=== PATIENT | male | born 1970 | race Caucasian/White ===

== ENCOUNTER 2020-12-08 22:16 | Emergency (ER) | payer BC ==
[~2020-12-08] VITALS: Ht 177.8 cm; Wt 97.7 kg
[2020-12-08] MEDS ORDERED: ketorolac trometh. 30mg/ml inj. IV ONE (22:35)
[2020-12-08] MEDS ORDERED: normal saline 1000ML IV soln IVB ONE (22:35)
[2020-12-08 22:39] LABS: BASOPHILS # (AUTO) 0.1 X10'3 (0-0.2); BASOPHILS % (AUTO) 0.8 % (0-1); EOSINOPHILS # (AUTO) 0.1 X10'3 (0-0.9); EOSINOPHILS % (AUTO) 1.2 % (0-6); HEMATOCRIT 46.5 % (42.0-52.0); HEMOGLOBIN 16.3 g/dl (14.0-17.9); LYMPHOCYTES # (AUTO) 3.6 X10'3 (1.1-4.8); LYMPHOCYTES % (AUTO) 39.9 % (21-51); MEAN CORPUSCULAR VOLUME 91.5 FL (78-98); MEAN PLATELET VOLUME 8.4 FL (7.4-10.4); NEUTROPHILS # (AUTO) 4.2 X10'3 (1.8-7.7); NEUTROPHILS % (AUTO) 47.1 % (42-75); PLATELET COUNT 269 X10'3 (140-440); RED BLOOD COUNT 5.08 X10'6 (4.70-6.10); RED CELL DISTRIBUTION WIDTH 13.7 % (11.5-14.5); WHITE BLOOD COUNT 8.9 X10'3 (4.5-11.0)
[2020-12-08 22:47] LABS: ALBUMIN 3.9 G/DL (3.4-5.0); ALKALINE PHOSPHATASE 68 IU/L (46-116); BILIRUBIN,TOTAL 0.4 MG/DL (0.1-1.0); BLOOD UREA NITROGEN 30 MG/DL (7-18); BUN/CREATININE RATIO 16.4 (5.4-32.0); CALCIUM 9.2 MG/DL (8.5-10.1); CREATININE 1.83 MG/DL (0.60-1.10); LIPASE 115 U/L (73-393); TOTAL CARBON DIOXIDE 18.2 MMOL/L (24-32); TOTAL PROTEIN 7.8 G/DL (6.4-8.2); eGFR 39 ML/MIN
--- NOTE | 2020-12-08 22:55 | NUR ---
PT OUT TO CT
[2020-12-08 23:14] LABS: ALANINE AMINOTRANSFERASE 53 U/L (12-78); ANION GAP 21 (8-16); ASPARTATE AMINO TRANSFERASE 32 U/L (10-37); CHLORIDE 98 MMOL/L (99-107); GLUCOSE 137 MG/DL (70-104); POTASSIUM 3.7 MMOL/L (3.5-5.1); SODIUM 137 MMOL/L (135-145)
[2020-12-08] MEDS ORDERED: IBUP-1986 PO (23:36)
[2020-12-08] MEDS ORDERED: ONDA4TAB12 PO (23:36)
[2020-12-08] MEDS ORDERED: FLO0.4C PO (23:36)
[2020-12-08 23:50] LABS: CLARITY,URINE CLEAR (Clear); COLOR,URINE YELLOW (Yellow); GLUCOSE, URINE NEGATIVE (Neg); KETONES,URINE NEGATIVE (Neg); LEUKOCYTE ESTERASE ,URINE NEGATIVE (Neg); NITRITES, URINE NEGATIVE (Neg); OCCULT BLOOD,URINE MODERATE (Neg); PROTEIN,URINE NEGATIVE (Neg); UROBILINOGEN,URINE 0.2 E.U/dL (0.2-1.0)
[2020-12-08 23:59] LABS: UA COLLECTION TYPE URINAL
[2020-12-09] LABS: BACTERIA,URINE NONE SEEN /HPF (Neg); WBC,URINE 0-4 /HPF (0-4)
[2020-12-09 00:01] LABS: SQUAMOUS EPITHELIAL CELL,UR NONE SEEN /LPF (FEW)
[2020-12-09 00:17] VITALS: BP 146/97
== END 2020-12-09 | disposition home or self-care (01) ==
LOC: ER 12-09 01:14
DX: N20.0 Calculus of kidney (principal); R10.84 Generalized abdominal pain; R11.2 Nausea with vomiting, unspecified; Z79.899 Other long term (current) drug therapy
CPT/HCPCS: 36415; 74176; 80053; 81001; 81003; 83690; 85025; 96361; 96374; 99284; J1885; J7030

== ENCOUNTER 2021-01-28 05:19 | Emergency (ER) | payer BC ==
[~2021-01-28] VITALS: Ht 177.8 cm; Wt 97.7 kg
[~2021-01-28 05:19] MED LIST: IBUP-1986 PO; ONDA4TAB12 PO
[2021-01-28] MEDS ORDERED: ketorolac trometh. 30mg/ml inj. IV ONE (05:50)
[2021-01-28 07:00] LABS: BASOPHILS % (AUTO) 0.2 % (0-1); EOSINOPHILS % (AUTO) 0.2 % (0-6); HEMATOCRIT 47.6 % (42.0-52.0); HEMOGLOBIN 16.3 g/dl (14.0-17.9); LYMPHOCYTES # (AUTO) 2.2 X10'3 (1.1-4.8); MEAN CORPUSCULAR HEMOGLOBIN 31.4 PG (27.0-31.0); MEAN CORPUSCULAR HGB CONC 34.3 g/dL (33.0-36.5); MEAN CORPUSCULAR VOLUME 91.6 FL (78-98); MEAN PLATELET VOLUME 9.2 FL (7.4-10.4); MONOCYTES % (AUTO) 9.2 % (2-12); NEUTROPHILS # (AUTO) 7.3 X10'3 (1.8-7.7); NEUTROPHILS % (AUTO) 69.4 % (42-75); PLATELET COUNT 233 X10'3 (140-440); RED CELL DISTRIBUTION WIDTH 13.3 % (11.5-14.5); WHITE BLOOD COUNT 10.5 X10'3 (4.5-11.0)
[2021-01-28 07:05] LABS: ALANINE AMINOTRANSFERASE 37 U/L (12-78); ALBUMIN 4.3 G/DL (3.4-5.0); ALBUMIN/GLOBULIN RATIO 1.1 (1.1-1.5); ALKALINE PHOSPHATASE 71 IU/L (46-116); ANION GAP 14 (8-16); ASPARTATE AMINO TRANSFERASE 24 U/L (10-37); BILIRUBIN,TOTAL 0.4 MG/DL (0.1-1.0); BLOOD UREA NITROGEN 22 MG/DL (7-18); BUN/CREATININE RATIO 12.4 (5.4-32.0); CALCIUM 8.8 MG/DL (8.5-10.1); CHLORIDE 104 MMOL/L (99-107); CREATININE 1.77 MG/DL (0.60-1.10); GLUCOSE 123 MG/DL (70-104); POTASSIUM 3.8 MMOL/L (3.5-5.1); SODIUM 140 MMOL/L (135-145); TOTAL CARBON DIOXIDE 22.5 MMOL/L (24-32); TOTAL PROTEIN 8.1 G/DL (6.4-8.2); eGFR 41 ML/MIN
[2021-01-28 08:01] LABS: CLARITY,URINE CLOUDY (Clear); COLOR,URINE YELLOW (Yellow); GLUCOSE, URINE NEGATIVE (Neg); KETONES,URINE TRACE mg/dl (Neg); LEUKOCYTE ESTERASE ,URINE TRACE (Neg); NITRITES, URINE NEGATIVE (Neg); OCCULT BLOOD,URINE LARGE (Neg); PROTEIN,URINE 30 mg/dl (Neg); UROBILINOGEN,URINE 0.2 E.U/dL (0.2-1.0)
[2021-01-28 08:12] VITALS: BP 139/88
[2021-01-28 08:14] LABS: UA COLLECTION TYPE CLN CATCH MIDSTREAM
[2021-01-28 08:15] LABS: MUCUS STRANDS FEW /LPF (Neg); SQUAMOUS EPITHELIAL CELL,UR FEW /LPF (FEW)
[2021-01-28 08:16] LABS: BACTERIA,URINE 1+ /HPF (Neg); RBC,URINE TNTC /HPF (0-2)
== END 2021-01-28 08:14 | disposition home or self-care (01) ==
LOC: ER 05:19
DX: N23 Unspecified renal colic (principal); N20.1 Calculus of ureter; K59.00 Constipation, unspecified; Z72.89 Other problems related to lifestyle; Z79.899 Other long term (current) drug therapy
CPT/HCPCS: 36415; 74018; 80053; 81001; 85025; 87088; 96374; 99284; J1885

== ENCOUNTER 2023-05-12 11:35 | Emergency (ER) | payer BC ==
[~2023-05-12] VITALS: Ht 177.8 cm; Wt 97.7 kg
[2023-05-12] MEDS ORDERED: TETanus/Pertussis (Acell)/Diphther VAC/PF (Tdap-Adult) 0.5ml syringe IMVAC ONE (13:10)
[2023-05-12] MEDS ORDERED: LIDOcaine 1%/PF 5ML 10 MG/ML VIAL IM ONE (14:45)
[2023-05-12] MEDS ORDERED: ceFAZolin 1gm IM kit IM ONE (14:45)
[2023-05-12] MEDS ORDERED: IBUP-1985 PO (15:37)
[2023-05-12] MEDS ORDERED: CEPH500C2 PO (15:37)
[2023-05-12 16:28] VITALS: BP 165/113; PULSE 78; RESP 16; TEMP 97.9; O2SAT 97
--- NOTE | 2023-05-12 18:53 | NUR ---
I AGREE WITH THE ASSESSMENT PER Clifford ORTEGA LVN.
== END 2023-05-12 16:46 | disposition home or self-care (01) ==
LOC: ER 11:35
DX: S68.011A Complete traumatic metacarpophalangeal amputation of right thumb, initial encounter (principal); Z79.1 Long term (current) use of non-steroidal anti-inflammatories (NSAID); Z79.2 Long term (current) use of antibiotics; Z79.899 Other long term (current) drug therapy; W23.0XXA Caught, crushed, jammed, or pinched between moving objects, initial encounter; Y93.89 Activity, other specified; Y92.89 Other specified places as the place of occurrence of the external cause; Y99.8 Other external cause status; X50.0XXA Overexertion from strenuous movement or load, initial encounter; X50.9XXA Other and unspecified overexertion or strenuous movements or postures, initial encounter
CPT/HCPCS: 29130; 73140; 90471; 90715; 96372; 99284; A6222; J0690; A6258; A6449